=== PATIENT | male | born 1955 | race Caucasian/White ===

== ENCOUNTER 2017-04-12 11:30 | Emergency (ER) | payer OTHER, BC ==
[2017-04-12 11:36] VITALS: BMI 29.0
--- NOTE | 2017-04-12 11:51 | PDOC ---
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 Denies head strike or LOC. Denies any other injuries. The patient reports initially having pain in the shoulder but able to range it and while he was at home changing his clothes he felt something pop out. He was otherwise in his usual state of good health. Denies chest pain, shortness of breath, headaches, weakness. Denies fevers, chills, nausea, vomiting, diarrhea. Denies focal weakness or numbness. <Jakob Woodson - Last Filed: 04/12/17 15:48> - General Chief Complaint: Shoulder Dislocation Stated Complaint: RT ARM/ SHOULDER PAIN Time Seen by Provider: 04/12/17 11:51 Past History <Cory Mayo - Last Filed: 04/12/17 15:32> - Past Medical History HTN: Yes Hypercholesterolemia: Yes - Immunization History Td Vaccination: Yes (03/2013) - Suicide/Smoking/Psychosocial Hx Smoking Status: No Smoking History: Never smoked Number of Cigarettes Smoked Daily: 0 Hx Alcohol Use: Yes (SOCAL) Drug/Substance Use Hx: No Substance Use Type: None Hx Substance Use Treatment: No <Jakob Woodson - Last Filed: 04/12/17 15:48> - Past Medical History Allergies/Adverse Reactions: Allergies Allergy/AdvReac Type Severity Reaction Status Date / Time No Known Allergies Allergy Verified 04/12/17 11:36 Home Medications: Ambulatory Orders Lisinopril [Prinivil -] 5 mg PO DAILY 03/23/13 Atorvastatin Ca [Lipitor] 20 mg PO HS 04/12/17 Review of Systems - Review of Systems Comments:: 04/12/17 12:20 GENERAL/CONSTITUTIONAL: No fever or chills. No weakness. HEAD, EYES, EARS, NOSE AND THROAT: No change in vision. No ear pain or discharge. No sore throat. GASTROINTESTINAL: No nausea, vomiting, diarrhea or constipation. GENITOURINARY: No dysuria, frequency, or change in urination. CARDIOVASCULAR: No chest pain or shortness of breath. RESPIRATORY: No cough, wheezing, or hemoptysis. MUSCULOSKELETAL: +R shoulder pain. No neck or back pain. SKIN: No rash NEUROLOGIC: No headache, vertigo, loss of consciousness, or change in strength/ sensation. ENDOCRINE: No increased thirst. No abnormal weight change. HEMATOLOGIC/LYMPHATIC: No anemia, easy bleeding, or history of blood clots. ALLERGIC/IMMUNOLOGIC: No hives or skin allergy. <ChintanJakob - Last Filed: 04/12/17 15:48> *Physical Exam - Vital Signs Last Vital Signs Temp Pulse Resp BP Pulse Ox 98.0 F 79 20 147/122 98 04/12/17 11:32 04/12/17 11:32 04/12/17 11:32 04/12/17 11:32 04/12/17 11:32 <Cory Mayo - Last Filed: 04/12/17 15:32> - Vital Signs Last Vital Signs Temp Pulse Resp BP Pulse Ox 98.0 F 79 20 147/122 98 04/12/17 11:32 04/12/17 11:32 04/12/17 11:32 04/12/17 11:32 04/12/17 11:32 - Physical Exam Comments: 04/12/17 12:21 GENERAL: Awake, alert, and fully oriented, in no acute distress HEAD: No signs of trauma EYES: PERRLA, EOMI, sclera anicteric, conjunctiva clear ENT: Auricles normal inspection, hearing grossly normal, nares patent, oropharynx clear without exudates. Moist mucosa NECK: Normal ROM, supple, no lymphadenopathy, JVD, or masses LUNGS: Breath sounds equal, clear to auscultation bilaterally. No wheezes, and no crackles HEART: Regular rate and rhythm, normal S1 and S2, no murmurs, rubs or gallops ABDOMEN: Soft, nontender, normoactive bowel sounds. No guarding, no rebound. No masses EXTREMITIES: R shoulder with subcoracoid deformity, arm held in adduction with limited ROM, no numbness over R shoulder. 2+ radial pulse in RUE. No hematoma. NEUROLOGICAL: Normal speech, cranial nerves intact, negative pronator drift, 5/ 5 strength in all 4 extremities, normal sensation to light touch in all 4 extremities, normal cerebellar exam, normal gait, normal reflexes and tone SKIN: Warm, Dry, normal turgor, no rashes or lesions noted. <Jakob Woodson - Last Filed: 04/12/17 15:48> Procedures - Joint Reduction Right Joint Reduction Site: right: Shoulder Pre-Procedure NV Exam: normal Conscious Sedation: No (intraarticular lidocaine plus 8mg morphine) Procedure: Traction Counter Traction Post-Procedure NV Exam: normal Complications: No Post Joint Reduction Film: joint reduced Immobilized: Yes <Cory Mayo - Last Filed: 04/12/17 15:32> ED Treatment Course - RADIOLOGY Radiology Studies Ordered: Category Date Time Status SHOULDER-RIGHT [RAD] Stat Radiology 04/12/17 14:12 Taken - Medications Given in the ED: ED Medications Discontinued Medications Generic Name Dose Route Start Last Admin Trade Name Freq PRN Reason Stop Dose Admin Lidocaine HCl 20 ml 04/12/17 12:49 04/12/17 14:16 Xylocaine 1% SQ 04/12/17 12:50 20 ml ONCE ONE Administration Morphine Sulfate 8 mg 04/12/17 12:48 04/12/17 14:16 Morphine Injection - IVPUSH 04/12/17 12:49 8 mg ONCE ONE Administration <Cory Mayo - Last Filed: 04/12/17 15:32> Medical Decision Making - Medical Decision Making 04/12/17 12:23 61-year-old male presents with right shoulder dislocation. Neurovascularly intact -Right shoulder x-ray -pain control -reduction 04/12/17 15:[address] Mayo by downward traction and external rotation. Pt neurovascularly intact throughout. Post reduction film with successful reduction and no fractures. Pt able to reach contralateral shoulder. Pain well controlled. Pt discharged, discussed with him return precautions and advised him to follow up with ortho in 1-2 weeks. <Jakob Woodson - Last Filed: 04/12/17 15:48> *DC/Admit/Observation/Transfer - Discharge Dispostion Admit: No <Cory Mayo - Last Filed: 04/12/17 15:32> - Attestations Physician Attestion: 04/12/17 15:48 I, Dr. Jakob Woodson MD, attest that this document has been prepared under my direction and personally reviewed by me in its entirety. I further attest, that it accurately reflects all work, treatment, procedures and medical decision -making performed by me. <Jakob Woodson - Last Filed: 04/12/17 15:48> Diagnosis at time of Disposition: Shoulder dislocation Qualifiers: Encounter type: initial encounter Laterality: right Qualified Code(s): S43.004A - Unspecified dislocation of right shoulder joint, initial encounter - Discharge Dispostion Disposition: HOME Condition at time of disposition: Improved - Referrals Referrals: Dmitriy Gould MD [Primary Care Provider] - Eren Watkins MD [Staff Physician] - - Patient Instructions Printed Discharge Instructions: DI for Shoulder Dislocation Additional Instructions: Please call Dr. Mina's office for an appointment in 1-2 weeks. Return to the emergency department if you have any new, worsening, or concerning symptoms. - Post Discharge Activity Forms/Work/School Notes: Back to Work
[2017-04-12] MEDS ORDERED: morphine CARPU-JECT 4 MG/1 ML DISP.SYRIN IVPUSH ONE (12:48)
[2017-04-12] MEDS ORDERED: LIDOCAINE HCL 1%, 10 MG/ML (50 mL VIAL) SQ ONE (12:49)
[2017-04-12] MEDS ORDERED: LIDOCAINE HCL 1%, 10 MG/ML (20ML VIAL) ONE (12:52)
[2017-04-12] MEDS ORDERED: morphine CARPU-JECT 4 MG/1 ML DISP.SYRIN ONE (12:53)
[2017-04-12 16:18] VITALS: BP 148/92; PULSE 86; TEMP 98.7
== END 2017-04-12 16:17 | disposition home or self-care (01) ==
LOC: JER 11:30
PROC: 0RSJXZZ Reposition Right Shoulder Joint, External Approach (ICD-10-PCS; principal; 2017-04-12)
PROC: 3E033NZ Introduction of Analgesics, Hypnotics, Sedatives into Peripheral Vein, Percutaneous Approach (ICD-10-PCS; 2017-04-12)
DX: S43.084A Other dislocation of right shoulder joint, initial encounter (principal); W17.89XA Other fall from one level to another, initial encounter; Y93.H3 Activity, building and construction; Y92.69 Other specified industrial and construction area as the place of occurrence of the external cause; Y99.0 Civilian activity done for income or pay
CPT/HCPCS: 73030-TC-RT; 99282-25